=== PATIENT | female | born 1950 | race Caucasian/White ===

== ENCOUNTER → 2018-08-30 | Outpatient (CLI) | payer OTHER | LOC: YCFC.O 09:03 | PROVIDERS: ATTEND Nurse Practitioner Family | DX: Z00.00 Encounter for general adult medical examination without abnormal findings (principal) ==

== ENCOUNTER → 2020-02-21 | Outpatient (CLI) | payer MEDICARE, OTHER | LOC: YCFC.O 08:03 | PROVIDERS: ATTEND Nurse Practitioner | DX: Z00.00 Encounter for general adult medical examination without abnormal findings (principal); I10 Essential (primary) hypertension; E55.9 Vitamin D deficiency, unspecified; E61.1 Iron deficiency; R42 Dizziness and giddiness; Z13.1 Encounter for screening for diabetes mellitus ==

== ENCOUNTER → 2020-08-21 | Outpatient (CLI) | payer MEDICARE, OTHER ==
--- NOTE | 2020-08-21 12:25 | RAD ---
XR CHEST 2 VIEWS HISTORY: 70 years Female COVID-19 COMPARISON: None. TECHNIQUE: PA and lateral views of the chest. FINDINGS: Lungs: Subtle hazy attenuation in the left lower lung, consistent with mild airspace disease. No evidence of a pleural effusion or pneumothorax. Heart/Mediastinum: Cardiomediastinal silhouette is unremarkable. Bones: No acute abnormality detected. IMPRESSION: Mild airspace disease in the left lower lung concerning for pneumonia. Electronically signed by: Jose Manuel Myles MD 08/21/2020 12:24 PM [facility]
== END ==
LOC: YCFC.O 11:41
PROVIDERS: ATTEND Nurse Practitioner
DX: U07.1 COVID-19 (principal); R50.9 Fever, unspecified

== ENCOUNTER → 2020-09-23 | Outpatient (CLI) | payer MEDICARE, OTHER | LOC: YCFC.O 09:40 | PROVIDERS: ATTEND Nurse Practitioner | DX: R79.1 Abnormal coagulation profile (principal); R74.01 Elevation of levels of liver transaminase levels ==